=== PATIENT | female | born 1995 | race African-American/Black ===

== ENCOUNTER 2017-11-23 22:46 | Inpatient (IN) | payer OTHER ==
[~2017-11-23] VITALS: Ht 160 cm; Wt 122.4 kg
[2017-11-24 01:47] VITALS: BP 108/57
[2017-11-24] MEDS ORDERED: LEXAPRO5 MG PO (01:47)
[2017-11-24] MEDS ORDERED: HALDOL0.5 MG PO (01:49)
[2017-11-24] MEDS ORDERED: DOXYCYCLINE HYC50 MG PO (01:50)
[2017-11-24] MEDS ORDERED: COGENTIN1 MG PO (01:51)
[2017-11-24] MEDS ORDERED: HYDROXYZINE HCL25 MG PO (01:51)
[2017-11-24] MEDS ORDERED: LAMICTAL100 MG PO ×2 (01:52→08:59)
[2017-11-24] MEDS ORDERED: LATUDA40 MG PO (01:53)
[2017-11-24 07:46] VITALS: BP 110/59
[2017-11-24 15:40] VITALS: BP 123/71
[2017-11-25 09:29] VITALS: BP 111/57
[2017-11-25 15:52] VITALS: BP 155/77
[2017-11-26 16:20] VITALS: BP 104/51
[2017-11-27 08:38] VITALS: BP 111/65
[2017-11-27 16:02] VITALS: BP 123/73
[2017-11-28 07:53] VITALS: BP 131/84
[2017-11-28 15:35] VITALS: BP 109/65
[2017-11-29 07:52] VITALS: BP 116/57
[2017-11-29] MEDS ORDERED: LAMOTRIGINE150 MG PO (10:06)
[2017-11-29] MEDS ORDERED: ESCITALOPRAM OX10 MG PO (10:06)
[2017-11-29] MEDS ORDERED: HALDOL2 MG PO (10:06)
[2017-11-29] MEDS ORDERED: HALDOL5 MG PO (10:06)
[2017-11-29] MEDS ORDERED: HYDROXYZINE HCL25 MG PO (10:06)
== END 2017-11-29 14:45 | disposition home or self-care (01) | DRG 885 ==
LOC: 1WEST 22:46
DX: F33.3 Major depressive disorder, recurrent, severe with psychotic symptoms (principal); F60.3 Borderline personality disorder; R45.851 Suicidal ideations; E66.01 Morbid (severe) obesity due to excess calories; Z68.42 Body mass index [BMI] 45.0-49.9, adult; F42.4 Excoriation (skin-picking) disorder; Z81.1 Family history of alcohol abuse and dependence
CPT/HCPCS: 97150 GO; 97166 GO; Q0177